=== PATIENT | male | born 1980 ===

== ENCOUNTER 2017-09-18 10:36 | Outpatient (CLI) | payer OTHER | END 2017-09-18 10:37 | disposition home or self-care (01) | LOC: SC 10:36 | PROVIDERS: ATTEND Internal Medicine Pulmonary Disease | DX: G47.10 Hypersomnia, unspecified (principal); G47.9 Sleep disorder, unspecified; R06.83 Snoring | CPT/HCPCS: 99203; 99212 ==

== ENCOUNTER 2017-11-01 23:00 | Outpatient (CLI) | payer OTHER | END 2017-11-01 23:01 | disposition home or self-care (01) | LOC: SC 23:00 | PROVIDERS: ATTEND Internal Medicine Pulmonary Disease | DX: G47.33 Obstructive sleep apnea (adult) (pediatric) (principal); G47.61 Periodic limb movement disorder | CPT/HCPCS: 95810 ==

== ENCOUNTER 2017-11-21 09:08 | Outpatient (CLI) | payer OTHER | END 2017-11-21 09:09 | disposition home or self-care (01) | LOC: SC 09:08 | PROVIDERS: ATTEND Nurse Practitioner Family | DX: G47.33 Obstructive sleep apnea (adult) (pediatric) (principal); G47.61 Periodic limb movement disorder | CPT/HCPCS: 99212; 99214 ==

== ENCOUNTER 2018-12-24 15:02 | Outpatient (CLI) | payer OTHER | END 2018-12-24 15:03 | disposition home or self-care (01) | LOC: SC 15:02 | PROVIDERS: ATTEND Nurse Practitioner Family | DX: G47.33 Obstructive sleep apnea (adult) (pediatric) (principal); G25.81 Restless legs syndrome | CPT/HCPCS: 99212; 99214 ==

== ENCOUNTER 2018-12-26 21:34 | Outpatient (CLI) | payer OTHER | END 2018-12-26 21:35 | disposition home or self-care (01) | LOC: SC 21:34 | PROVIDERS: ATTEND Internal Medicine Pulmonary Disease | DX: G47.33 Obstructive sleep apnea (adult) (pediatric) (principal); G47.61 Periodic limb movement disorder; G47.63 Sleep related bruxism | CPT/HCPCS: 95810 ==

== ENCOUNTER 2019-01-01 13:13 | Outpatient (CLI) | payer OTHER | END 2019-01-01 13:14 | disposition home or self-care (01) | LOC: SC 13:13 | PROVIDERS: ATTEND Internal Medicine Pulmonary Disease | DX: G47.33 Obstructive sleep apnea (adult) (pediatric) (principal); G47.61 Periodic limb movement disorder | CPT/HCPCS: 99212; 99213 ==

== ENCOUNTER 2019-03-18 | Outpatient (CLI) | payer OTHER | END 2019-03-18 08:17 | disposition home or self-care (01) | DX: G47.33 Obstructive sleep apnea (adult) (pediatric) (principal); G25.81 Restless legs syndrome | CPT/HCPCS: 99212; 99215 ==